=== PATIENT | female | born 1980 | race Caucasian/White ===

== ENCOUNTER 2020-12-27 16:31 | Emergency (ER) | payer MEDICARE ==
[2020-12-27] MEDS ORDERED: HYDROCODONE/ACETAMINOPHEN 5-325 MG TABLET PO ONE (17:14)
--- NOTE | 2020-12-27 17:14 | ER Document Report ---
ED Medical Screen (RME) - General Chief Complaint: Leg Pain Stated Complaint: LEFT LEG PAIN Time Seen by Provider: 12/27/20 17:08 Mode of Arrival: Wheelchair Information source: Patient Notes: HPI; 40-year-old female with a past medical history of herniated disc from L4-L5 with a laminectomy in 2013 presents emergency room with worsening left leg pain for the past week. States she is having numbness and tingling with loss control over her bladder today. States she was seen at [facility] ER on the was given Toradol and Flexeril without relief. States did not have an evaluation at that time. Not currently taking any other medications for her symptoms. She denies any saddle anesthesia. Pain does radiate from her low back into her left leg. Also states while she was walking down the stairs today her leg gave out she caught her self before falling to the bottom of the stairs. PE: Alert and oriented x3. Lungs: Clear to auscultation without rales, rhonchi, wheezes. Heart: Regular rate rhythm without murmurs, rubs, gallops. Unable to do full exam in triage I have greeted and performed a rapid initial assessment of this patient. A comprehensive ED assessment and evaluation of the patient, analysis of test results and completion of the medical decision making process will be conducted by additional ED providers. I have specifically instructed the patient or fa zainab members with the patient to immediately return to any nursing staff should anything change in the patient's condition or with their chief complaint. TRAVEL OUTSIDE OF THE [place] IN LAST 30 DAYS: No Physical Exam - Vital signs Vitals: Temp Pulse Resp BP Pulse Ox 98.6 F 102 H 15 145/93 H 98 12/27/20 16:59 12/27/20 16:59 12/27/20 16:59 12/27/20 16:59 12/27/20 16:59 Course - Vital Signs Vital signs: Temp Pulse Resp BP Pulse Ox 98.6 F 102 H 15 145/93 H 98 12/27/20 16:59 12/27/20 16:59 12/27/20 16:59 12/27/20 16:59 12/27/20 16:59
[2020-12-27 18:02] LABS: ABSOLUTE BASOPHILS # (AUTO) 0.1 10^3/uL (0.0-0.2); ABSOLUTE EOSINOPHILS # (AUTO) 0.1 10^3/uL (0.0-0.6); ABSOLUTE LYMPHOCYTES (AUTO) 2.6 10^3/uL (0.5-4.7); ABSOLUTE MONOCYTES (AUTO) 0.6 10^3/uL (0.1-1.4); BASOPHILS % (AUTO) 1.5 % (0-2); EOSINOPHILS % (AUTO) 1.8 % (0-6); HEMATOCRIT 39.7 % (36.0-47.0); HEMOGLOBIN 13.3 g/dL (12.0-15.5); LYMPHOCYTES % (AUTO) 34.8 % (13-45); MEAN CORPUSCULAR HEMOGLOBIN 27.2 pg (27.0-33.4); MEAN CORPUSCULAR HGB CONC 33.5 g/dL (32.0-36.0); MEAN CORPUSCULAR VOLUME 81 fl (80-97); PLATELET COUNT 274 10^3/uL (150-450); RED BLOOD COUNT 4.88 10^6/uL (3.72-5.28); RED CELL DISTRIBUTION WIDTH 14.2 % (11.5-14.0); SEGMENTED NEUTROPHILS % (AUTO) 53.9 % (42-78); TOTAL CELLS COUNTED % (AUTO) 100 %; WHITE BLOOD COUNT 7.4 10^3/uL (4.0-10.5)
[2020-12-27 18:15] LABS: APPEARANCE,URINE CLEAR; BILIRUBIN,URINE NEGATIVE (NEGATIVE); COLOR,URINE STRAW; GLUCOSE, URINE NEGATIVE (NEGATIVE); KETONES,URINE NEGATIVE (NEGATIVE); LEUKOCYTE ESTERASE,URINE NEGATIVE (NEGATIVE); NITRITE,URINE NEGATIVE (NEGATIVE); PROTEIN,URINE NEGATIVE (NEGATIVE); URINE SPECIFIC GRAVITY 1.005; UROBILINOGEN,URINE NEGATIVE mg/dL (<2.0)
[2020-12-27 18:21] LABS: ALKALINE PHOSPHATASE 74 U/L (38-126); ANION GAP 5 (5-19); ASPARTATE AMINO TRANSFERASE 22 U/L (14-36); BILIRUBIN,DIRECT 0.2 mg/dL (0.0-0.4); BILIRUBIN,TOTAL 0.4 mg/dL (0.2-1.3); BLOOD UREA NITROGEN 10 mg/dL (7-20); CALCIUM 9.6 mg/dL (8.4-10.2); CARBON DIOXIDE 29 mmol/L (22-30); CHLORIDE 106 mmol/L (98-107); GLUCOSE 104 mg/dL (75-110); POTASSIUM 3.5 mmol/L (3.6-5.0); TOTAL PROTEIN 6.7 g/dL (6.3-8.2)
--- NOTE | 2020-12-27 20:56 | ER Document Report ---
ED General - General Chief Complaint: Leg Pain Stated Complaint: LEFT LEG PAIN Time Seen by Provider: 12/27/20 17:08 Primary Care Provider: RUPA KRISHNA PA-C [Primary Care Provider] - Follow up as needed Mode of Arrival: Wheelchair TRAVEL OUTSIDE OF THE [place] IN LAST 30 DAYS: No - HPI Notes: 40-year-old female presents with back and left leg pain. Patient reports that she has had this pain for several years, has been diagnosed with degenerative di sc disease. She reports that in 2013 she had a laminectomy and 30% of the disc shaved at L5/S1. States that for the past 4 months she has tried to get into pain management and neurosurgery, however is unable to obtain an appointment. She reports chronic weakness to her left leg and drags her heel for the past 2 years. States that for the past few weeks the pain has seemed to increase, states that she actually cried today because of pain. She feels numbness in her inner thigh. She notes that she was walking today and her leg gave out, she is able to catch herself and did not fall to the ground. She states that she has tried various muscle relaxers for the pain. She reports that she cannot take steroids because this causes her blood pressure to rise. She states that she cannot take NSAIDs because she has a history of ulcers. She states that she was seen at another emergency department on the , was given Toradol and Flexeril, diagnosed with sciatica and discharged home. Her triage note mentions loss of bladder control, which I had to address with patient. Patient states that she has a history of hysterectomy and will have episodes every once in a while she will pee on herself. She states that this happened today, she does not think it is related to the leg pain but she cannot be sure, but has not occurred since. Patient has been ambulatory today. - Related Data Allergies/Adverse Reactions: dimercaprol Allergy (Verified 12/27/20 18:33) methylprednisolone Allergy (Verified 12/27/20 18:33) Penicillins Allergy (Verified 12/27/20 18:33) prednisone Allergy (Verified 12/27/20 18:33) Past Medical History - General Information source: Patient - Social History Smoking Status: Unknown if Ever Smoked Family History: Reviewed & Not Pertinent Past Surgical History: Reports: Hx Abdominal Surgery, Hx Section, Hx Cholecystectomy, Hx Gynecologic Surgery, Hx Hysterectomy, Hx Orthopedic Surgery, Hx Tubal Ligation Review of Systems - Review of Systems Constitutional: denies: Fever EENT: No symptoms reported Cardiovascular: No symptoms reported Respiratory: No symptoms reported Gastrointestinal: No symptoms reported Genitourinary: No symptoms reported Female Genitourinary: No symptoms reported Musculoskeletal: See HPI Skin: No symptoms reported Hematologic/Lymphatic: No symptoms reported Neurological/Psychological: See HPI Physical Exam - Vital signs Vitals: Temp Pulse Resp BP Pulse Ox 98.6 F 102 H 15 145/93 H 98 12/27/20 16:59 12/27/20 16:59 12/27/20 16:59 12/27/20 16:59 12/27/20 16:59 - General General appearance: Appears well, Alert In distress: None - HEENT Head: Normocephalic, Atraumatic Extraocular movements intact: Yes Pupils: PERRL - Respiratory Breath sounds: Normal - Cardiovascular Rhythm: Regular Heart sounds: Normal auscultation Pulses: Normal: Dorsalis pedis Normal capillary refill: Yes - Abdominal Tenderness: Nontender - Back Back: Other - No midline tenderness - Extremities General upper extremity: Normal ROM General lower extremity: Normal color, Normal ROM, Normal temperature. No: Edema - Neurological Neuro grossly intact: Yes Cognition: Normal Orientation: AAOx4 Notes: Patient has preserved motor to the lower extremities. There is mild discrepancy with toe touch left compared to right, dorsiflexion is symmetric. Patellar reflexes are symmetric. She is able to move the leg freely about in bed. There is no saddle anesthesia and sensation is grossly intact. - Psychological Associated symptoms: Normal affect - Skin Skin Temperature: Warm Course - Re-evaluation Re-evalutation: 40-year-old female here with chronic back pain, left leg pain and weakness, worsening over the past few weeks. Has previous surgery at L5-S1 in 2014. On exam, patient does have intact motor and sensation to her bilateral lower extremities, symmetric reflexes, no saddle anesthesia. Based on her exam, I would not suspect cord compression at this time. She had an MRI ordered through triage, report available which was reviewed. Per radiology the visualized spinal cord demonstrates normal caliber, signal intensity and morphology. There is left disc herniation at L5-S1, however cannot fully rule out scar tissue. This is the area of patient's previous surgery. I suspect this finding is likely causing the radiculopathy symptoms that she is experiencing. She has several intolerances to medications and did not want to try other muscle relaxer such as Robaxin. She was given a dose of morphine for pain control, shortly after which receiving she reported she was ready to go home. I prescribed her a very short course of [place], she was instructed to follow-up with pain management and neurosurgery as planned. Return precautions given, stable at time of discharge. - Vital Signs Vital signs: Temp Pulse Resp BP Pulse Ox 98.3 F 81 16 141/78 H 99 12/27/20 22:25 12/27/20 22:25 12/27/20 22:25 12/27/20 22:25 12/27/20 22:25 - Laboratory Results Result Diagrams: 12/27/20 17:35 12/27/20 17:35 Laboratory Results Interpreted: 12/27/20 12/27/20 12/27/20 17:35 17:35 17:35 RDW 14.2 H Potassium 3.5 L Urine Blood SMALL H Critical Laboratory Results Reviewed: No Critical Results - Radiology Results Critical Radiology Results Reviewed: No Critical Results Discharge - Discharge Clinical Impression: Lumbar radiculopathy Condition: Good Disposition: HOME, SELF-CARE Additional Instructions: Please try to follow-up with neurosurgery and pain medicine as discussed. Been prescribed a very short course of [place] to use as needed for severe pain. Return to the emergency department for any concerning worsening symptoms. Prescriptions: Hydrocodone/Acetaminophen [[place] 5-325 mg Tablet] 1 tab PO Q6H PRN 5 Days #20 tablet PRN Reason: Referrals: RUPA KRISHNA PA-C [Primary Care Provider] - Follow up as needed
--- NOTE | 2020-12-27 20:57 | RADIOLOGY REPORT (SQ) ---
EXAM: MRI LUMBAR SPINE COMBO CLINICAL INDICATION: 40-year-old female with low back pain radiating into the LEFT leg with loss of bladder control for one day. COMPARISON: No prior imaging is available for comparison. TECHNIQUE: Multiplanar, multi-sequence MR images of the lumbar spine pre and post intravenous administration of 15 mL ProHance. FINDINGS: Lumbar spine: There is minimal straightening of the lumbar spine which may be secondary to positioning for examination. Signal intensity and morphology of the vertebral bodies and intervertebral disk spaces is within normal limits with exception of degenerative changes L5-S1. No increase in signal intensity is seen on STIR images to suggest acute abnormalities. The pre-and paravertebral soft tissues are within normal limits. The visualized spinal cord demonstrates normal caliber, signal intensity and morphology. L1-2: within normal limits without central or neuroforaminal narrowing. L2-3: within normal limits without central or neuroforaminal narrowing. L3-4: within normal limits without central or neuroforaminal narrowing. L4-5: within normal limits without central or neuroforaminal narrowing. L5-S1: LEFT paracentral disk herniation with effacement and abutment of the LEFT lateral recess with extension into the LEFT neural foramina. Increased T2 signal intensity present within the posterior disk space compatible with annular tear or fissure. Abutment of the exiting LEFT L5 and descending S1 nerve roots. Mild RIGHT, moderate to severe LEFT neuroforaminal narrowing secondary to posterior osseous spurring, disk bulge ligamentum flavum and facet hypertrophy LEFT greater than RIGHT. The extruded disk component extends into the LEFT paracentral and foraminal disk spaces by approximately 6 mm, (series 6, image 27). On postcontrast imaging there is diffuse enhancement at the level of the LEFT paracentral disk suggesting diffuse disk enhancement, however may reflect scar tissue in the setting of prior surgery. Please correlate with patient surgical history. Limited abdominal imaging is within normal limits. IMPRESSION: 1. Suspected LEFT paracentral disk extrusion as detailed above. In the setting of previous surgical intervention of the disk at this level, differential consideration may include scar tissue. Please correlate with patient's surgical history.
[2020-12-27] MEDS ORDERED: MORPHINE SULFATE 10 MG/ML INJ IV ONE (21:14)
[2020-12-27] MEDS ORDERED: RINGERS SOLUTION,LACTATED 1,000 ML IV ONE (21:14)
[2020-12-27 23:12] VITALS: BP 141/78
== END 2020-12-27 22:25 | disposition home or self-care (01) ==
LOC: ER 16:31
DX: M54.16 Radiculopathy, lumbar region (principal); M79.605 Pain in left leg; G89.29 Other chronic pain; Z90.49 Acquired absence of other specified parts of digestive tract; Z90.710 Acquired absence of both cervix and uterus
CPT/HCPCS: 99285; 96361; 96374; 36415; 85025; 80053; 81001; 72158; A9576; J2270; J7120; A9270